=== PATIENT | female | born 1980 | race African-American/Black ===

== ENCOUNTER 2021-06-09 11:35 | Observation (INO) ==
[2021-06-09] MEDS ORDERED: methylPREDNISolone SOD SUC 125 MG/2 ML VIAL IV STA (11:47)
[2021-06-09] MEDS ORDERED: LEVOFLOXACIN INJ 500 MG/100 ML PREMIX IV STA (11:47)
[2021-06-09] MEDS ORDERED: SODIUM CHLORIDE 0.9% 500 ML IV STA (11:47)
[2021-06-09] MEDS ORDERED: ALBUTEROL NEB SOLN 5 MG/ML 20 ML/BOTTLE CONT NEB SCH (12:00)
[2021-06-09 12:05] LABS: Basophils # 0.1 10*3/uL (0.0-0.2); Basophils % 0.6 % (0.0-0.8); Eosinophils # 0.4 10*3/uL (0.0-0.87); Hematocrit 38.9 VOL% (35.7-47.0); Hemoglobin 13.2 GM/DL (12.0-16.0); Immature Granulocytes % 0.3 %; Immature Granulocytes Absolute 0.03 #; Lymphocytes # 3.3 10*3/uL (1.4-4.0); Lymphocytes % 38.4 % (21.3-54.2); Mean Corpuscular HGB Conc 33.9 GM/DL (32-36); Mean Corpuscular Volume 92.6 FL (87-102); Mean Platelet Volume 10.3 FL (9.6-12.0); Monocytes % 7.7 % (1.7-12.7); Platelet Count 239 T/CUMM (130-400); Red Cell Distribution Width 11.9 % (9.3-17.3); White Blood Count 8.7 T/CUMM (4-12)
[2021-06-09 12:26] LABS: Arterial Base Excess iSTAT -1 MMOL/L (-2.5-2.5); Arterial Bicarbonate iSTAT 24.8 MMOL/L (20-26); Arterial O2 Saturation iSTAT 87 % (95-100); Arterial PCO2 iSTAT 46 MM HG (35-48); Arterial PO2 iSTAT 56 MM HG (80-95); Arterial Total CO2 iSTAT 26 MMO/L (23-27); Arterial pH iSTAT 7.345 (7.35-7.45)
[2021-06-09 12:30] LABS: Alanine Aminotransferase 21 U/L (13-56); Albumin 3.6 G/DL (3.4-5.0); Alkaline Phosphatase 58 U/L (45-117); Aspartate Amino Transferase 18 U/L (0-37); Bilirubin,Total < 0.39 MG/DL (0.20-1.00); Blood Urea Nitrogen 8 MG/DL (7-18); Calcium 8.6 MG/DL (8.5-10.1); Carbon Dioxide 27 MMOL/L (21-32); Estimated Glom Filtration Rate 120 ML/MIN; Glucose 96 MG/DL (74-106); Osmolality,Calculated 280.1 MOS/KG (273-304); Sodium 142 MMOL/L (136-145); Total Protein 7.9 G/DL (6.4-8.2)
[2021-06-09 12:47] LABS: Atypical Lymphocytes Few; Eosinophils 4 % (0-10); Hypochromia Slight; Lymphocytes 42 % (20-55); Platelet Estimate Normal; Segmented Neutrophils 48 % (50-85); Total Cells Counted 100
[2021-06-09] MEDS ORDERED: POTASSIUM CHLORIDE 20 MEQ TABLET PO STA (14:02)
[2021-06-09] MEDS ORDERED: ACETAMINOPHEN 325 MG TABLET PO PRN (14:24)
[2021-06-09] MEDS ORDERED: ONDANSETRON 4 MG/2 ML VIAL IV PRN (14:24)
[2021-06-09] MEDS ORDERED: GLUCAGON 1 MG VIAL IM PRN (14:24)
[2021-06-09] MEDS ORDERED: hydrALAZINE 20 MG/1 ML VIAL IV PRN (14:24)
[2021-06-09] MEDS ORDERED: DOCUSATE SODIUM 100 MG CAPSULE PO PRN (14:24)
[2021-06-09] MEDS ORDERED: DEXTROSE 10% 250 ML BAG IV PRN (14:30)
[2021-06-09] MEDS: methylPREDNISolone SOD SUC 40 MG/1 ML VIAL IV SCH ×2 (14:48→23:16)
[2021-06-09] MEDS: ENOXAPARIN 40 MG/0.4 ML SYRINGE SUBCUT SCH (14:48)
[2021-06-09] MEDS: LEVOFLOXACIN 750 MG TABLET PO SCH (14:48)
[2021-06-09] MEDS ORDERED: INFLUENZA VIRUS VACCINE 0.5 ML SYRINGE IM ONE (17:16)
[2021-06-09] MEDS: ALBUTEROL/IPRATROPIUM 3 ML NEB RESP TX SCH (19:21)
[2021-06-10] MEDS: ALBUTEROL/IPRATROPIUM 3 ML NEB RESP TX SCH ×4 (01:07→20:13)
[2021-06-10] MEDS: methylPREDNISolone SOD SUC 40 MG/1 ML VIAL IV SCH ×2 (06:24→14:26)
[2021-06-10 06:25] LABS: Hematocrit 38.7 VOL% (35.7-47.0); Hemoglobin 12.7 GM/DL (12.0-16.0); Immature Granulocytes % 0.5 %; Immature Granulocytes Absolute 0.04 #; Lymphocytes # 1.1 10*3/uL (1.4-4.0); Lymphocytes % 12.4 % (21.3-54.2); Mean Corpuscular HGB Conc 32.8 GM/DL (32-36); Mean Corpuscular Volume 93.3 FL (87-102); Mean Platelet Volume 10.8 FL (9.6-12.0); Monocytes % 6.8 % (1.7-12.7); Neutrophils % 80.3 % (38.7-73.9); Platelet Count 241 T/CUMM (130-400); Red Blood Count 4.15 MC/CUMM (3.8-5.5); Red Cell Distribution Width 11.8 % (9.3-17.3); White Blood Count 8.7 T/CUMM (4-12)
[2021-06-10 06:42] LABS: Calcium 9.5 MG/DL (8.5-10.1); Osmolality,Calculated 280.5 MOS/KG (273-304); Potassium 3.9 MMOL/L (3.5-5.1)
[2021-06-10] MEDS ORDERED: PANTOPRAZOLE 40 MG TABLET PO SCH (09:00)
[2021-06-10] MEDS ORDERED: buPROPion SR 100 MG TABLET PO SCH (09:30)
[2021-06-10] MEDS ORDERED: guaiFENesin/DM ER 600-30 MG TABLET PO SCH (09:30)
[2021-06-10] MEDS ORDERED: LACTULOSE 20 GM/30 ML UDCUP PO ONE (10:00)
[2021-06-10] MEDS ORDERED: NICOTINE 21 MG/24 HR PATCH TRANSDERM SCH (10:00)
[2021-06-10] MEDS ORDERED: POLYETHYLENE GLYCOL POWDER 17 GM PACK PO SCH (10:00)
[2021-06-10] MEDS: BENZONATATE 100 MG CAPSULE PO SCH ×2 (10:12→14:26)
[2021-06-10] MEDS ORDERED: BUDESONIDE/FORMOTEROL 160-4.5 INHALER 6 GM INH SCH (12:30)
[2021-06-10] MEDS: LEVOFLOXACIN 750 MG TABLET PO SCH (14:26)
[2021-06-10] MEDS: ENOXAPARIN 40 MG/0.4 ML SYRINGE SUBCUT SCH (14:26)
[2021-06-10 15:44] VITALS: BP 108/59
[2021-06-10] MEDS ORDERED: DOCUSATE SODIUM 100 MG CAPSULE PO SCH (21:00)
[2021-06-11] MEDS ORDERED: buPROPion SR 100 MG TABLET PO SCH (09:00)
[2021-06-11] MEDS ORDERED: CHOLECALCIFEROL 1,000 UNIT TABLET PO SCH (09:00)
== END 2021-06-11 00:25 | disposition left against medical advice (07) ==
LOC: N.3E 11:35 → N.ED 11:35 → SUATTDRO 14:24 → N.3E 16:33
PROVIDERS: ADMIT Internal Medicine; ATTEND Hospitalist

== ENCOUNTER 2022-02-21 09:49 | Observation (INO) ==
[2022-02-21] MEDS ORDERED: ACETAMINOPHEN 500 MG TABLET ONE (10:14)
[2022-02-21] MEDS ORDERED: ACETAMINOPHEN 500 MG TABLET PO STA (10:23)
[2022-02-21] MEDS ORDERED: SODIUM CHLORIDE 0.9% 1,000 ML IV STA (10:23)
[2022-02-21 10:29] LABS: Basophils % 0.5 % (0.0-0.8); Eosinophils # 0.4 10*3/uL (0.0-0.87); Hematocrit 41.1 VOL% (35.7-47.0); Hemoglobin 13.8 GM/DL (12.0-16.0); Immature Granulocytes % 0.1 %; Immature Granulocytes Absolute 0.01 #; Lymphocytes # 3.3 10*3/uL (1.4-4.0); Lymphocytes % 44.4 % (21.3-54.2); Mean Corpuscular HGB Conc 33.6 GM/DL (32-36); Mean Corpuscular Volume 92.8 FL (87-102); Mean Platelet Volume 10.9 FL (9.6-12.0); Monocytes # 0.6 10*3/uL (0.11-0.8); Monocytes % 8.3 % (1.7-12.7); Neutrophils % 40.7 % (38.7-73.9); Platelet Count 270 T/CUMM (130-400); Red Blood Count 4.43 MC/CUMM (3.8-5.5); Red Cell Distribution Width 11.8 % (9.3-17.3); White Blood Count 7.4 T/CUMM (4-12)
[2022-02-21 10:40] LABS: INR 0.9; PT Patient Result 10.5 SECS (10.1-12.1); Partial Thromboplastin Time 22.5 SECS (23.7-32.9)
[2022-02-21 10:44] LABS: Alanine Aminotransferase 20 U/L (13-56); Albumin 3.6 G/DL (3.4-5.0); Alkaline Phosphatase 63 U/L (45-117); Aspartate Amino Transferase 18 U/L (0-37); Bilirubin,Total < 0.39 MG/DL (0.20-1.00); Blood Urea Nitrogen 17 MG/DL (7-18); Calcium 8.9 MG/DL (8.5-10.1); Carbon Dioxide 22 MMOL/L (21-32); Chloride 111 MMOL/L (98-107); Glucose 154 MG/DL (74-106); Osmolality,Calculated 285.3 MOS/KG (273-304); Sodium 141 MMOL/L (136-145); Total Protein 7.5 G/DL (6.4-8.2)
[2022-02-21] MEDS ORDERED: ALBUTEROL NEB SOLN 5 MG/ML 20 ML/BOTTLE CONT NEB STA (10:51)
[2022-02-21] MEDS ORDERED: methylPREDNISolone SOD SUC 125 MG/2 ML VIAL IV STA (10:51)
[2022-02-21] MEDS ORDERED: ACETAMINOPHEN 325 MG TABLET PO PRN (15:25)
[2022-02-21] MEDS ORDERED: guaiFENesin/DM ER 600-30 MG TABLET PO PRN (15:25)
[2022-02-21] MEDS ORDERED: ONDANSETRON 4 MG/2 ML VIAL IV PRN (15:25)
[2022-02-21] MEDS ORDERED: hydrALAZINE 20 MG/1 ML VIAL IV PRN (15:25)
[2022-02-21] MEDS: MONTELUKAST 10 MG TABLET PO SCH (16:48)
[2022-02-21] MEDS: methylPREDNISolone SOD SUC 40 MG/1 ML VIAL IV SCH (20:11)
[2022-02-21] MEDS ORDERED: ENOXAPARIN 40 MG/0.4 ML SYRINGE SUBCUT SCH (21:00)
[2022-02-22] MEDS: methylPREDNISolone SOD SUC 40 MG/1 ML VIAL IV SCH (04:43)
[2022-02-22 05:37] LABS: Basophils % 0.2 % (0.0-0.8); Eosinophils % 0.1 % (0.00-10.9); Hematocrit 37.8 VOL% (35.7-47.0); Hemoglobin 12.5 GM/DL (12.0-16.0); Immature Granulocytes % 0.4 %; Immature Granulocytes Absolute 0.04 #; Lymphocytes # 1.6 10*3/uL (1.4-4.0); Mean Corpuscular HGB Conc 33.1 GM/DL (32-36); Mean Platelet Volume 11.4 FL (9.6-12.0); Monocytes # 0.7 10*3/uL (0.11-0.8); Monocytes % 6.1 % (1.7-12.7); Neutrophils % 78.2 % (38.7-73.9); Platelet Count 242 T/CUMM (130-400); Red Blood Count 3.98 MC/CUMM (3.8-5.5); Red Cell Distribution Width 11.5 % (9.3-17.3); White Blood Count 10.9 T/CUMM (4-12)
[2022-02-22 05:53] LABS: Osmolality,Calculated 283.4 MOS/KG (273-304); Potassium 3.7 MMOL/L (3.5-5.1)
[2022-02-22] MEDS: ALBUTEROL/IPRATROPIUM 3 ML NEB RESP TX SCH ×4 (07:49→12:05)
[2022-02-22 08:18] VITALS: BP 133/74
[2022-02-22] MEDS ORDERED: NICOTINE 21 MG/24 HR PATCH TRANSDERM SCH (09:00)
[2022-02-22] MEDS ORDERED: PANTOPRAZOLE 40 MG TABLET PO SCH (09:00)
[2022-02-22] MEDS: MONTELUKAST 10 MG TABLET PO SCH (10:09)
== END 2022-02-22 12:55 | disposition home or self-care (01) ==
LOC: N.ED 09:49 → N.EDINP 09:49 → SUATTDRO 15:25 → N.EDINP 17:35 → N.2W 17:48
PROVIDERS: ADMIT Internal Medicine; ATTEND Internal Medicine